=== PATIENT | female | born 1945 | race Caucasian/White ===

== ENCOUNTER 2021-03-26 14:40 | Emergency (ER) | payer SELFPAY ==
[~2021-03-26] VITALS: Ht 157.5 cm; Wt 59.0 kg
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
[2021-03-26 17:47] LABS: BASOPHILS # (AUTO) 0.1 K/uL (0.0-0.2); BASOPHILS % (AUTO) 0.8 % (0.0-2.0); EOSINOPHILS % (AUTO) 1.1 % (0.0-6.0); HEMATOCRIT 46 % (33-45); HEMOGLOBIN 15.3 g/dL (11.5-14.8); LYMPHOCYTES # (AUTO) 2.8 K/uL (0.8-4.8); MEAN CORPUSCULAR HGB CONC 34 g/dl (31.0-36.0); MEAN CORPUSCULAR VOLUME 95 fL (82-100); MONOCYTES # (AUTO) 0.7 K/uL (0.1-1.30); MONOCYTES % (AUTO) 8.1 % (2.0-12.0); NEUTROPHILS # (AUTO) 5.4 K/uL (1.8-8.9); PLATELET COUNT (AUTO) 259 K/uL (150-450); RED BLOOD CELL COUNT(AUTO) 4.82 MIL/uL (4.0-5.2); WHITE BLOOD COUNT (AUTO) 9.1 K/uL (4.3-11.0)
[2021-03-26 17:49] VITALS: BP 141/80
[2021-03-26 18:14] LABS: CALCIUM, SERUM 9.1 mg/dL (8.5-10.1); CARBON DIOXIDE 30 mmol/L (21-32); CHLORIDE 105 mmol/L (98-107); CREATININE 0.8 mg/dL (0.6-1.3); GLUCOSE 76 mg/dL (74-106); POTASSIUM 4.8 mmol/L (3.5-5.1); SODIUM SERUM 140 mmol/L (136-145); UREA NITROGEN, BLOOD 15 mg/dL (7-18)
[2021-03-26] MEDS ORDERED: IBUP-1955 PO (19:26)
[2021-03-26] MEDS ORDERED: IBUPROFEN 600 MG TABLET ONE (19:29)
[2021-03-26] MEDS ORDERED: IBUPROFEN 600 MG TABLET PO ONE (19:30)
--- NOTE | 2021-03-26 20:06 | NUR ---
Patient discharged to home in stable condition. Written and verbal after care instructions given. Patient verbalizes understanding of instruction.
== END 2021-03-26 20:07 | disposition home or self-care (01) ==
LOC: ER 14:50
DX: S20.219A Contusion of unspecified front wall of thorax, initial encounter (principal); S16.1XXA Strain of muscle, fascia and tendon at neck level, initial encounter; V43.52XA Car driver injured in collision with other type car in traffic accident, initial encounter; Y93.89 Activity, other specified; Y92.410 Unspecified street and highway as the place of occurrence of the external cause; Y99.8 Other external cause status
CPT/HCPCS: 36415; 71045-TC; 72040-TC; 72074-TC; 80048-TC; 84484-TC; 85025-TC

== ENCOUNTER 2024-09-10 23:26 | Emergency (ER) | payer MEDICARE ==
[~2024-09-10] VITALS: Ht 162.6 cm; Wt 79.4 kg
[~2024-09-10 23:26] MED LIST: IBUP-1955 PO
[2024-09-11] MEDS ORDERED: IBUP-1957 PO (00:48)
[2024-09-11] MEDS ORDERED: CYCL5TAB PO (00:48)
[2024-09-11] MEDS ORDERED: IBUPROFEN 600 MG TABLET ONE (00:51)
[2024-09-11] MEDS ORDERED: CYCLOBENZAPRINE 10 MG TABLET ONE (00:51)
[2024-09-11] MEDS: IBUPROFEN 600 MG TABLET PO ONE (00:54)
[2024-09-11] MEDS: CYCLOBENZAPRINE 10 MG TABLET PO ONE (00:54)
[2024-09-11 01:36] VITALS: BP 146/75; TEMP 98.1; O2SAT 97
== END 2024-09-11 01:37 | disposition home or self-care (01) ==
LOC: ER 23:32
DX: M54.42 Lumbago with sciatica, left side (principal); I10 Essential (primary) hypertension; E11.9 Type 2 diabetes mellitus without complications; Z79.1 Long term (current) use of non-steroidal anti-inflammatories (NSAID); Z88.8 Allergy status to other drugs, medicaments and biological substances; Z60.2 Problems related to living alone; Z79.899 Other long term (current) drug therapy

== ENCOUNTER 2025-01-19 20:46 | Emergency (ER) | payer MEDICARE ==
[~2025-01-19] VITALS: Ht 157.5 cm; Wt 70.3 kg
[~2025-01-19 20:46] MED LIST changes: +CYCL5TAB PO; +IBUP-1957 PO
[2025-01-19] MEDS ORDERED: ACETAMINOPHEN 325 MG TABLET ONE (23:18)
[2025-01-19] MEDS ORDERED: IBUPROFEN 600 MG TABLET ONE (23:18)
[2025-01-19] MEDS: ACETAMINOPHEN 325 MG TABLET PO ONE (23:27)
[2025-01-19] MEDS: IBUPROFEN 600 MG TABLET PO ONE (23:27)
[2025-01-19 23:34] LABS: PLATELET COUNT (AUTO) 260 K/uL (150-450); RED BLOOD CELL COUNT(AUTO) 5.16 MIL/uL (4.0-5.2); RED CELL DISTRIBUTION WIDTH 13.3 % (11.5-15.0); WHITE BLOOD COUNT (AUTO) 10.8 K/uL (4.3-11.0)
[2025-01-19 23:47] LABS: ASPARTATE AMINOTRANSFERASE 31 U/L (15-37); CALCIUM, SERUM 9.9 mg/dL (8.5-10.1); CREATININE 1.0 mg/dL (0.6-1.3); SODIUM SERUM 143 mmol/L (136-145); TOTAL PROTEIN, SERUM 8.1 g/dL (6.4-8.2); UREA NITROGEN, BLOOD 20 mg/dL (7-18)
[2025-01-20 00:49] VITALS: BP 134/71; TEMP 98; O2SAT 93
== END 2025-01-20 00:49 | disposition home or self-care (01) ==
LOC: ER 20:51
DX: M54.6 Pain in thoracic spine (principal); I10 Essential (primary) hypertension; E11.9 Type 2 diabetes mellitus without complications; E03.9 Hypothyroidism, unspecified; E78.5 Hyperlipidemia, unspecified; Z79.1 Long term (current) use of non-steroidal anti-inflammatories (NSAID); Z88.8 Allergy status to other drugs, medicaments and biological substances; Z60.2 Problems related to living alone
CPT/HCPCS: 36415; 71045-TC; 80048-TC; 80076-TC; 83690-TC; 84484-TC; 85025-TC